=== PATIENT | female | born 1950 | race Caucasian/White ===

== ENCOUNTER → 2017-06-10 | Outpatient (CLI) | payer BC ==
[~2017-06-10] MED LIST: DIAZEPAM 5 MG5 M1 PO; EVISTA PO; SOMA250 MG PO; TESSALON PERLE100 MG PO
== END ==
LOC: RAD 07:19
DX: Z12.31 Encounter for screening mammogram for malignant neoplasm of breast (principal)

== ENCOUNTER → 2018-08-05 | Outpatient (CLI) | payer BC, OTHER | LOC: RAD 01:43 | DX: Z12.31 Encounter for screening mammogram for malignant neoplasm of breast (principal) ==

== ENCOUNTER → 2019-08-09 | Outpatient (CLI) | payer BC, OTHER ==
[~2019-08-09] MED LIST changes: +LIPITOR10 MG PO; +LOMOTIL 2.5-0.01 TAB PO; +SERTRALINE HCL100 MG PO; +TOPROL XL25 MG PO; +VASCEPA0.5 GM PO
== END ==
LOC: RAD 03:40
DX: Z12.31 Encounter for screening mammogram for malignant neoplasm of breast (principal)

== ENCOUNTER → 2019-08-12 | Outpatient (CLI) | payer OTHER | LOC: RAD 13:52 | DX: N63.10 Unspecified lump in the right breast, unspecified quadrant (principal) ==

== ENCOUNTER 2019-08-16 13:12 | Emergency (ER) | payer OTHER ==
[~2019-08-16] VITALS: Ht 157.5 cm; Wt 63.5 kg
[~2019-08-16 13:12] MED LIST changes: -LIPITOR10 MG PO; -LOMOTIL 2.5-0.01 TAB PO; -SERTRALINE HCL100 MG PO; -TOPROL XL25 MG PO; -VASCEPA0.5 GM PO
[2019-08-16 13:45] LABS: HEMATOCRIT 41.1 % (37.0-47.0); HEMOGLOBIN 12.8 gm/dL (12.0-15.0); MCH 23.1 pg (26.0-34.0); MCHC 31.1 g/dL (28.0-37.0); MCV 74.4 fL (80.0-100.0); RBC 5.52 mil/uL (4.20-5.00); RDW 15.1 % (10.5-14.5); WBC 7.9 thou/uL (4.0-11.0)
[2019-08-16] MEDS ORDERED: LOMOTIL 2.5-0.01 TAB PO (13:45)
[2019-08-16] MEDS ORDERED: TOPROL XL25 MG PO (13:46)
[2019-08-16] MEDS ORDERED: LIPITOR10 MG PO (13:46)
[2019-08-16] MEDS ORDERED: SERTRALINE HCL100 MG PO (13:46)
[2019-08-16] MEDS ORDERED: VASCEPA0.5 GM PO (13:47)
[2019-08-16 13:52] LABS: CALCIUM 9.1 mg/dL (8.5-10.1); CREATININE 1.1 mg/dL (0.6-1.0); POTASSIUM 4.3 mmol/L (3.5-5.1)
[2019-08-16 14:51] LABS: APTT 25.9 Seconds (24.5-32.8); PROTIME 9.7 Seconds (9.3-11.4)
[2019-08-16 16:12] LABS: URINE BILIRUBIN NEGATIVE (Negative); URINE BLOOD TRACE (Negative); URINE CLARITY CLEAR; URINE COLOR YELLOW; URINE GLUCOSE-RANDOM* NEGATIVE (Negative); URINE KETONES NEGATIVE (Negative); URINE LEUKOCYTES-REFLEX NEGATIVE (Negative); URINE NITRITE-REFLEX NEGATIVE (Negative); URINE PROTEIN (DIPSTICK) NEGATIVE (Negative); URINE SPECIFIC GRAVITY <= 1.005 (1.005-1.035); URINE UROBILINOGEN 0.2 E.U./dl (0.2-1.0)
[2019-08-16 16:22] LABS: AMP/METHAMP Negative (Negative); BARBITURATES Negative (Negative); BENZODIAZEPINES POSITIVE (Negative); COCAINE Negative (Negative); METHADONE Negative (Negative); OPIATES Negative (Negative); PCP Negative (Negative)
[2019-08-16 17:36] VITALS: BP 117/50
--- NOTE | 2019-08-17 19:09 | EKG ---
[place] [address] [facility] [facility] [employer] [place] [address] ELECTROCARDIOGRAM REPORT Name: JEREL STANFORD Room #: DEP [facility]#: [id number] Admission: 08/16/19 Attend Phys: Discharge: 08/16/19 Date of : 54 Report #: [id number] THIS REPORT FOR: //name// [facility] ED Test Date: 2019-08-16 Test Time: 13:28:30 Pat Name: JEREL STANFORD Department: Room: Gender: F Belly Dancer: CLOTILDE : 1950 Requested By: Nikki Thomason Order Number: [id number] MD: Jeff Hutchinson Measurements Intervals [place] Rate: 69 P: 51 CA: 193 QRS: 34 QRSD: 95 T: -7 QT: 403 QTc: 432 Interpretive Statements Sinus rhythm Borderline T abnormalities, diffuse leads Compared to ECG 12/05/2012 19:58:08 T-wave abnormality now present Sinus tachycardia no longer present Electronically Signed On 08-17-2019 19:09:07 [employer] by Jeff Hutchinson [email or web address] <ELECTRONICALLY SIGNED> By: Jeff Hutchinson MD, [facility] 08/17/19 [id number] Jeff Hutchinson MD, FAC /EPI
== END 2019-08-16 17:36 | disposition short-term general hospital (02) ==
LOC: ER 13:12
PROVIDERS: Emergency Medicine
DX: S02.40EA Zygomatic fracture, right side, initial encounter for closed fracture (principal); S02.40CA Maxillary fracture, right side, initial encounter for closed fracture; I60.9 Nontraumatic subarachnoid hemorrhage, unspecified; S51.811A Laceration without foreign body of right forearm, initial encounter; S80.01XA Contusion of right knee, initial encounter; S90.01XA Contusion of right ankle, initial encounter; I10 Essential (primary) hypertension; E78.5 Hyperlipidemia, unspecified; W10.9XXA Fall (on) (from) unspecified stairs and steps, initial encounter; Y92.89 Other specified places as the place of occurrence of the external cause; Y93.89 Activity, other specified; Y99.8 Other external cause status

== ENCOUNTER → 2020-08-03 | Outpatient (CLI) | payer OTHER ==
[~2020-08-03] MED LIST changes: +LIPITOR10 MG PO; +LOMOTIL 2.5-0.01 TAB PO; +SERTRALINE HCL100 MG PO; +TOPROL XL25 MG PO; +VASCEPA0.5 GM PO
== END ==
LOC: RAD 04-03 13:15
PROVIDERS: ATTEND Internal Medicine
DX: R92.8 Other abnormal and inconclusive findings on diagnostic imaging of breast (principal)

== ENCOUNTER → 2021-09-04 | Outpatient (CLI) | payer OTHER | LOC: BC 08-15 16:26 | PROVIDERS: ATTEND Internal Medicine | DX: Z12.31 Encounter for screening mammogram for malignant neoplasm of breast (principal) ==